=== PATIENT | male | born 2000 | race Caucasian/White ===

== ENCOUNTER 2022-10-22 00:08 | Emergency (ER) | payer BC ==
[2022-10-22] MEDS ORDERED: Acetaminophen 500 MG TAB ONE (01:55)
[2022-10-22 02:53] LABS: SARS-CoV-2 NAA Rapid Test DETECTED (NotDetected)
== END 2022-10-22 03:02 | disposition home or self-care (01) ==
LOC: CSHERS 00:08
DX: U07.1 COVID-19 (principal)
CPT/HCPCS: 99284

== ENCOUNTER 2022-11-05 13:09 | Emergency (ER) | payer BC | END 2022-11-05 15:58 | disposition home or self-care (01) | LOC: CSHERS 13:09 | DX: H61.21 Impacted cerumen, right ear (principal) | CPT/HCPCS: 69209 ==